=== PATIENT | male | born 1945 | race Caucasian/White ===

== ENCOUNTER → 2017-06-12 | Outpatient (REF) | payer MEDICARE, BC ==
[2017-06-12 14:33] LABS: COMPLEMENT C3 108 MG/DL (90-180); COMPLEMENT C4 33.4 MG/DL (10-40); FERRITIN 53 NG/ML (26-388); PERCENT SATURATION 20.3 % (19.7-50.0); TOTAL IRON BINDING CAPACITY 290 UG/DL (250-450); TOTAL PROTEIN 6.3 GM/DL (6.4-8.2)
[2017-06-16 12:38] LABS: ALBUMIN 3.58 GM/DL (3.29-5.55); ALBUMIN % 56.8 % (55.8-66.1); GAMMA GLOBULIN % 10.4 % (11.1-18.8)
[2017-06-17 00:06] LABS: FREE KAPPA LIGHT CHAINS SERUM 29.9 mg/L (3.3-19.4); FREE LAMBDA LIGHT CHAINS SERUM 33.1 mg/L (5.7-26.3)
== END ==
LOC: M LAB REF 12:54
PROVIDERS: ATTEND Internal Medicine Nephrology
DX: N18.3 Chronic kidney disease, stage 3 (moderate) (principal); D63.1 Anemia in chronic kidney disease; R31.29 Other microscopic hematuria

== ENCOUNTER → 2017-06-19 | Outpatient (CLI) | payer MEDICARE, BC ==
--- NOTE | 2017-06-19 15:03 | REP ---
NUCLEAR RENAL FLOW AND FUNCTION: Following the intravenous administration of 8.7 mCi technetium 99m MAG-3, immediate flow images are obtained in the posterior projection showing poor perfusion of the right kidney with adequate perfusion of the left kidney. Delayed renal function images are performed in the posterior projection every minute for a period of 30 minutes. There is right renal atrophy of a moderate degree. There is bilateral cortical washout. There is bilateral excretion with no scintigraphic evidence of hydronephrosis. Split-function is 81.7% on the left and 18.3% on the right. [id number] is 8 minutes on the left and 5 minutest on the right. T1/2 is 27.9 minutes on the left and 27.5 minutes on the right. Renal function curve for the right kidney demonstrates a low amplitude with significantly shallow downward slope and delayed peak. Renal function curve for the left kidney demonstrates a delayed peak with moderately shallow downward slope. There is a very mild postvoid residual in the urinary bladder after voiding. IMPRESSION: Moderate right renal atrophy. No evidence of urinary tract obstruction. There is moderately compromised renal function bilaterally. Signed by Felice Fraire MD 06/19/2017 05:22 P
== END ==
LOC: M RAD 12:10
PROVIDERS: ATTEND Internal Medicine Nephrology
DX: N18.3 Chronic kidney disease, stage 3 (moderate) (principal); N28.81 Hypertrophy of kidney
CPT/HCPCS: 78707; A9562

== ENCOUNTER → 2017-08-07 | Outpatient (REF) | payer MEDICARE, BC | LOC: M LAB REF 17:15 | PROVIDERS: ATTEND Internal Medicine Nephrology | DX: N18.3 Chronic kidney disease, stage 3 (moderate) (principal); E11.22 Type 2 diabetes mellitus with diabetic chronic kidney disease; I12.9 Hypertensive chronic kidney disease with stage 1 through stage 4 chronic kidney disease, or unspecified chronic kidney disease ==

== ENCOUNTER → 2017-10-02 | Outpatient (REF) | payer MEDICARE, BC ==
[2017-10-02 19:11] LABS: TOTAL PROTEIN,RANDOM URINE 754.7 MG/DL (0.0-12.0)
== END ==
LOC: M LAB REF 16:57
DX: N18.3 Chronic kidney disease, stage 3 (moderate) (principal); E11.22 Type 2 diabetes mellitus with diabetic chronic kidney disease
CPT/HCPCS: 84156

== ENCOUNTER → 2019-05-10 | Outpatient (REF) | payer MEDICARE, BC ==
[2019-05-10 14:42] LABS: PERCENT SATURATION 27.9 % (19.7-50.0)
== END ==
LOC: M LAB REF 13:25
PROVIDERS: ATTEND Nurse Practitioner Family
DX: N18.9 Chronic kidney disease, unspecified (principal); D63.1 Anemia in chronic kidney disease

== ENCOUNTER → 2019-05-20 | Outpatient (CLI) | payer MEDICARE, BC ==
--- NOTE | 2019-05-20 15:37 | REP ---
Bladder ultrasound for pre and post void bladder volume is day patient with nocturia. The distended bladder wall thickness is 2.4 ml. This is normal. With color Doppler assessment there are bilateral ureteral jets. The pre void bladder volume is 259 ml. The postvoid bladder volume is 2.8 ml. The postvoid residual is 1.2%. The Electronically Signed by Felice Pollard MD 05/20/2019 03:28 P
== END ==
LOC: M RAD 12:48
PROVIDERS: ATTEND Nurse Practitioner Family
DX: I70.1 Atherosclerosis of renal artery (principal); N18.4 Chronic kidney disease, stage 4 (severe); R35.1 Nocturia; R33.9 Retention of urine, unspecified

== ENCOUNTER → 2019-05-27 | Outpatient (CLI) | payer MEDICARE, BC ==
--- NOTE | 2019-05-27 10:55 | REP ---
MRA RENAL ARTERIES: TECHNIQUE: 2D [id number] imaging performed of the renal arteries with MIP reconstruction images. Axial and coronal T2 localizing sequences are obtained. The abdominal aorta at the level of the renal arteries is normal in caliber. Left renal artery demonstrates mild diffuse narrowing. The right renal artery demonstrates a more moderate degree of diffuse narrowing proximally with focal high grade stenosis approximately 7 mm distal to the renal artery origin. A single renal artery is noted bilaterally. The right kidney demonstrates moderate hydronephrosis or cortical thinning. There are several small cysts in the left kidney. Two of the cysts are hemorrhagic in the upper pole demonstrating low signal on both routine T2-weighted images as well as T2 fat saturation images. IMPRESSION: Single renal artery identified bilaterally. There is mild diffuse narrowing of the left renal artery. There is a more moderate degree of diffuse narrowing of the proximal right renal artery with focal high grade stenosis of the main right renal artery 7 mm distal to its origin. Electronically Signed by Felice Fraire MD 05/27/2019 11:10 A
== END ==
LOC: M RAD 08:18
PROVIDERS: ATTEND Nurse Practitioner Family
DX: N18.4 Chronic kidney disease, stage 4 (severe) (principal); R35.1 Nocturia; R33.9 Retention of urine, unspecified